=== PATIENT | male | born 1965 | race Caucasian/White ===

== ENCOUNTER 2023-02-02 08:42 | Day surgery (SDC) | payer OTHER ==
[~2023-02-02] VITALS: Ht 172.7 cm; Wt 113.6 kg
[~2023-02-02 08:42] MED LIST: SODIUM CHLORIDE 0.9% 1,000 ML IV ONE; SODIUM CHLORIDE 0.9% 1,000 ML ONE
[2023-02-02] MEDS ORDERED: PROPOFOL 1% 20 ML VIAL IVP ONE (08:43)
[2023-02-02] MEDS ORDERED: LIDOCAINE/PF 2% 5 ML SYRINGE IVP ONE (08:43)
[2023-02-02 09:26] LABS: GLUCOMETER DEV NAME(LOC) SDS.; GLUCOSE,POINT OF CARE 121 MG/DL (70-110)
== END 2023-02-02 11:30 | disposition home or self-care (01) ==
LOC: SURGERY 08:42
PROVIDERS: ATTEND Student in an Organized Health Care Education/Training Program
DX: K63.5 Polyp of colon (principal); I10 Essential (primary) hypertension; K64.8 Other hemorrhoids; Z79.899 Other long term (current) drug therapy; E11.9 Type 2 diabetes mellitus without complications; Z98.890 Other specified postprocedural states
CPT/HCPCS: 45380; 82962; 88305; 93005; C1769; J2704; J3490; J7030